=== PATIENT | male | born 1995 | race Two or more races ===

== ENCOUNTER 2020-09-28 12:42 | Emergency (ER) | payer SELFPAY ==
[~2020-09-28] VITALS: Ht 165.1 cm; Wt 65.8 kg
[2020-09-28 12:46] VITALS: BP 112/80
[2020-09-28] MEDS ORDERED: HYDROCODONE/APAP 10/325MG TABLET PO ONE (13:00)
[2020-09-28] MEDS ORDERED: HYDROCODONE/APAP 10/325MG TABLET ONE (13:01)
[2020-09-28] MEDS ORDERED: IBUP-1957 PO (13:44)
--- NOTE | 2020-09-28 15:10 | NUR ---
Patient Dc home with his brother agrees to follow up PMD in AM follow up ortho agreed patient able to ambulated non difficulties .
--- NOTE | 2020-09-28 15:14 | NUR ---
Patient instructed to go to his PMD for follow up .
== END 2020-09-28 15:16 | disposition home or self-care (01) ==
LOC: EDBD 12:44 → ER 12:44
DX: S42.022A Displaced fracture of shaft of left clavicle, initial encounter for closed fracture (principal); W51.XXXA Accidental striking against or bumped into by another person, initial encounter; Y93.66 Activity, soccer; Y92.830 Public park as the place of occurrence of the external cause; Y99.8 Other external cause status
CPT/HCPCS: 73030-TC